=== PATIENT | male | born 1990 | race Caucasian/White ===

== ENCOUNTER 2020-06-06 13:12 | Emergency (ER) | payer OTHER, SELFPAY ==
[2020-06-06 13:25] VITALS: BP 143/93; PULSE 85; RESP 21; TEMP 37.2; O2SAT 99; BMI 37.5
--- NOTE | 2020-06-06 13:48 | HMH.EDUTC ---
[facility] [place] Disposition Clinical Impression: Gastroenteritis Disposition: Home, Self-Care Condition on Discharge: Good Instructions: DI for Viral Gastroenteritis -- Adult Additional Instructions: Return diarrhea panel for testing if possible Prescriptions: Ondansetron [Zofran 4mg ODT] 4 mg PO TIDP PRN 10 Days #30 tab PRN Reason: Nausea Transmission Status: Pending to [id number] Referrals: Julieth Das DO [Primary Care Provider] - Time of Disposition: 13:55 Medical Decision Making - Bi Inquiry Pt receiving controlled substance: No [facility] [place] HPI - General Stated complaint: nausea, diarrhea Time Seen by Provider: 06/06/20 13:48 - History of Present Illness Provider Complaint: Patient has had nausea and diarrhea X 1 week. Vomited one time yesterday. Denies abdominal pain but has had cramping and gurgling. No fever. Had COVID vaccine #2 2 weeks ago and gets tested daily at work. Onset (ago): week(s) (1) Location: abdomen Relieving factors: none Exacerbating factors: none Associated symptoms: nausea/vomiting Treatments prior to arrival: none - Related Data Previous Rx's Medication Instructions Recorded ondansetron HCl 4 mg tablet 4 mg PO TID PRN 5 Days #10 tab 03/26/19 Ondansetron [Zofran 4mg ODT] 4 mg PO TIDP PRN 10 Days #30 tab 06/06/20 Allergies Allergy/AdvReac Type Severity Reaction Status Date / Time ibuprofen [IBUPROFEN] Allergy Unknown Verified 03/26/19 13:[address] [facility] History - Hepatitis A Screen Attestation statement:: This patient has been screened for Hepatitis A risk factors. I have reviewed the patient's past medical history: Yes Medical History: Reports:: Urinary Tract Infection (many years ago. ) Denies:: Diabetes Mellitus Type 2, Seizures Other Medical History: Reports: Other (Circumsized Male) Comment: Pt denies STI or new sexual partners. Other Surgeries: Yes: No Previous Surgery Comment: right ankle surgery cyst removal as a child - Social History Smoking Status: Never smoker Alcohol Intake: current Alcohol Intake Frequency:: holidays/special occasions only Substance Use Type: denies use Occupational Status: employed Household Members: significant other Family Hx:: Non-contributory, Diabetes (Aunt. ) ROS Obtained: Yes All systems reviewed & no additional complaints - Gastrointestinal Gastrointestingal: Reports: loose stools, nausea, vomiting Physical Exam - General General appearance: alert, in no apparent distress - Head Head exam: normocephalic - Eye Eye exam: Present: PERRL - ENT ENT exam: Present: normal oropharynx - Respiratory Respiratory exam: Present: normal lung sounds bilaterally - Cardiovascular Cardiovascular exam: Present: regular rate, normal rhythm - Abdominal Exam Abdominal exam: Present: soft, hyperactive bowel sounds. Absent: tenderness, guarding - Neurological Exam Neurological exam: Present: alert, oriented X3 - Psychiatric Psychiatric exam: Present: normal affect, normal mood - Skin Skin exam: Present: warm, dry, intact
[2020-06-06 13:57] VITALS: BP 143/93; PULSE 85; RESP 21; TEMP 37.2; O2SAT 99
== END 2020-06-06 14:03 | disposition home or self-care (01) ==
PROVIDERS: Emergency Provider Physician Assistant; PCP Family Medicine
DX: K52.9 Noninfective gastroenteritis and colitis, unspecified (principal)
CPT/HCPCS: 99202; G0463

== ENCOUNTER 2024-10-02 12:32 | Emergency (ER) | payer SELFPAY ==
--- OUTSIDE RECORDS SUMMARY | 2024-07-06 06:15 | XMS_ITS ---
Author Organization [facility] Address [address] [place], [place] [id number] Care Team Providers Care Marine Electronics Technician Name Role Phone Livier Gleason Primary Care Provider Lety Lyman Unavailable [phone] Allergies No Known Allergies REASON FOR VISIT ckup & refills Medications Medication SIG (Take, Route, Frequency, Duration) Notes Start Date End Date Status Venlafaxine HCl ER 150 MG 1 capsule with food Orally Once a day for 10 days Active hydrOXYzine HCl 25 MG 1 tab(s) orally at bedtime as needed 10/29/2021 Not-Taking Paxil 30 MG 1 tab(s) orally once a day for 30 day(s) Not-Taking Metoprolol Succinate ER 25 MG 1 tablet Orally Once a day for 30 day(s) 10/01/2022 Not-Taking rOPINIRole HCl 0.25 MG 1 tablet 1 to 3 h ours before bedtime Orally Once a day 07/06/2024 Active Venlafaxine HCl ER 150 MG 1 capsule with food Orally Once a day for 30 day(s) Active Problems Problem Type SNOMED Code ICD Code Onset Dates Problem Status W/U Status Risk Notes Problem [id number] Restless legs (G25.81) Active confirmed Vital Signs Blood pressure systolic 130 mm Hg 07/07/19 25 Blood pressure diastolic 80 mm Hg 025 Heart Rate 90 /min 07/06/2024 Height 72.50 in 07/06/2024 Weight 275.4 lbs 07/06/2024 BMI 36.83 kg/m2 07/06/2024 Encounters Encounter Location Date Provider Diagnosis [facility] [address] [place] [id number] 07/06/2024 Lety Nura Depression with anxi ety F41.8 and Restless legs G25.81 Assessments Encounter Date Diagnosis (ICD Code) Assessment Notes Treatment Notes Treatment Clinical Notes Section Notes 07/06/2024 Depression with anxiety (ICD-10 - F41.8) 07/06/2024 Restless legs (ICD-10 - G25.81) Plan Of Treatment Medication Medication Name Sig Start Date Stop Date Notes rOPINIRole HCl 0.25 MG 1 tablet 1 to 3 h ours before bedtime Orally Once a day 07/06/2024 Venlafaxine HCl ER 150 MG 1 capsule with food Orally Once a day for 30 day(s) Next Appt Details Follow Up: once he gets insu jose for labs, Reason: Progress Notes * JOSE RAFAEL PierreDOB:1990 ( 34 yo M)Acc No.[id number]:07/06/2024 Progress Notes Patient: Pierre SAAVEDRA Provider: YANELIS Casanova :1990 A ge:34 Y S ex:Male Date:07/06/2024 Address:[address] [place] [address], [id number] Pcp:Livier Gleason Subjective: * Chief Complaints: * 1 . Ckup & refills. * HPI: H PI: 34 year old male presents with c/o Patient is here today for?Pt is here today for a check up and refills. He is doing well on the venlafaxine. He is having problems with RLS. He cannot afford labs now but should get insurance soon and can get them done at that time.. * ROS: D ERMATOLOGY: no R diane. n o H roxann. G ASTROENTEROLOGY: no N ausea. n o V omiting. n o D iarrhea.? U ROLOGY: no D ifficulty urinating. n o B lood in urine. * Medical History: T etanus vaccination 2011, Pfizer covid vaccine x2. * Surgical History: g rowth on right ankle as a child , cyst removed off of R lower eye lid . * Family History: F ather: alive. M other: alive. 1 brother(s) , 3 sister(s) . . * Social History: C URRENT TOBACCO USE S moking Status: Patient does NOT smoke. C affeine: yes, frequency:pop Qd. Home smoke detector use: yes. Marital Status: Single. Past smoking status: no. Alcohol: No. Sexually active: yes. * Medications: T aking Venlafaxine HCl ER 150 MG Capsule Extended Release 24 Hour 1 capsule with food Orally Once a day , Not-Taking Paxil 30 MG Tablet 1 tab(s) orally once a day , Not-Taking hydrOXYzine HCl 25 MG Tablet 1 tab(s) orally at bedtime as needed , Not-Taking Metoprolol Succinate ER 25 MG Tablet Extended Release 24 Hour 1 tablet Orally Once a day , Medication List reviewed and reconciled with the patient * Allergies: N .K.D.A. Objective: * Vitals: W t: 275.4, Temp: 99.0, BP: 130/80, HR: 90, O2 Sat: 98% on RA, Nurse: daniel, Ht: 72.50, BMI:36.83. * Examination: G eneral Examination: General Appearance: N AD. Chest: n ormal shape and expansion. Heart: R SR. Lungs: c lear to auscultation. Peripheral pulses: normal (2+) bilaterally. Extremities: no leg edema. P sychology: Grooming : a dequate. Eye contact : n ormal. Mood : p leasant. Assessment: * Assessment: 1. D epression with anxiety - F41.8 (Primary) 2 . R estless legs - G25.81? Plan: * Treatment: 2. R estless legs Start rOPINIRole HCl Tablet, 0.25 MG, 1 tablet 1 to 3 hours before bedtime, Orally, Once a day, 30, Refills 0. * Procedure Codes: 9 4760 PULSE OX * Follow Up: o nce he gets insurance for labs * Billing Information: * Visit Code: 36356 Office Visit, Est Pt., Level 2. * Procedure Codes: 26939 PULSE OX. * Electronic signature of YANELIS Keen on 10/02/2024 at 12:59 PM EDT Sign off status: Pending * Provider: YANELIS Casanova Date: 0 07/06/2024 Generated for Savannah rivas/Dilshad/Courtitting on: 0 10/02/2024 12:59 PM EDT History and Physical Notes * HPI (History of Present Illness) Category Sub-Category Detail Notes Category Not es HPI Patient is here today for Pt is here today for a check up and refills. He is doing well on the venlafaxine. He is having problems with RLS. He cannot afford labs now but should get insurance soon and can get them done at that time. Examination Category Sub-Category Detail Notes Category Not es General Examination Heart: RSR Lungs: clear to auscultatio n Extremities: no leg edema General Appearance: NAD Peripheral pulses: normal (2+) bilatera lly Chest: normal shape and exp ansion Psychology Grooming : adequate Eye contact : normal Mood : pleasant
--- OUTSIDE RECORDS SUMMARY | 2024-07-31 11:15 | XMS_ITS ---
Author Organization [facility] Address [address] [id number] Care Team Providers Care Apprentice Cosmetologist Name Role Phone Livier Gleason Primary Care Provider [phone] Oren Varner [phone] Allergies No Known Allergies REASON FOR VISIT diarrhea and puking in mornings, worried about gallbladder Medications Medication SIG (Take, Route, Frequency, Duration) Notes Start Date End Date Status Metoprolol Succinate ER 25 MG 1 tablet Orally Once a day for 30 day(s) 10/01/2022 Not-Taking hydrOXYzine HCl 25 MG 1 tab(s) orally at bedtime as needed 10/29/2021 Not-Taking Ondansetron HCl 4 MG 1 tablet Orally thr ee times a day as needed 07/31/2024 Active Paxil 30 MG 1 tab(s) orally once a day for 30 day(s) Not-Taking rOPINIRole HCl 0.25 MG 1 tablet 1 to 3 h ours before bedtime Orally Once a day 07/06/2024 Active Venlafaxine HCl ER 150 MG 1 capsule with food Orally Once a day for 30 day(s) Active Venlafaxine HCl ER 150 MG 1 capsule with food Orally Once a day for 10 days Active Vital Signs Blood pressure systolic 130 mm Hg 08/01/19 25 Blood pressure diastolic 88 mm Hg 025 Heart Rate 98 /min 07/31/2024 Height 72.50 in 07/31/2024 Weight 274.2 lbs 07/31/2024 BMI 36.67 kg/m2 07/31/2024 Encounters Encounter Location Date Provider Diagnosis [facility] [address] [place] [id number] 07/31/2024 Oren Varner RUQ abdominal pain R10.11 and Nausea R11.0 Assessments Encounter Date Diagnosis (ICD Code) Assessment Notes Treatment Notes Treatment Clinical Notes Section Notes 07/31/2024 RUQ abdominal pain (ICD-10 - R10.11) 07/31/2024 Nausea (ICD-10 - R11.0) Plan Of Treatment Medication Medication Name Sig Start Date Stop Date Notes Ondansetron HCl 4 MG 1 tablet Orally thr ee times a day as needed 07/31/2024 Pending Test Test Name Order Date Ultrasound : Right Upper Quadrant 2024 HIDA SCAN with CCK 07/31/2024 Next Appt Details Follow Up: after tests, Reas on: Progress Notes * Pierre MANTILLADOB:1990 ( 34 yo M)Acc No.[id number]:07/31/2024 Progress Notes Patient: Pierre SAAVEDRA Provider: Oren Varner M.D. :1990 A ge:34 Y S ex:Male Date:07/31/2024 Address:[address] [place] [address], [id number] Pcp:Livier Gleason Subjective: * Chief Complaints: * 1 . Diarrhea and puking in mornings, worried about gallbladder. * HPI: G astroenterology: He presents with a 2-day history of right upper quadrant pain associated with nausea and loose stools. This typically occurs in the mornings. Does not seem to be related to any particular food. Denies fever. No blood in stool. He has a history of gallbladder sludge noted on ultrasound in 2020. He did not have follow-up testing. * ROS: D ERMATOLOGY: no R diane. n o H roxann. G ASTROENTEROLOGY: no N ausea. n o V omiting. n o D iarrhea.? U ROLOGY: no D ifficulty urinating. n o B lood in urine. * Medical History: T etanus vaccination 2012, Pfizer covid vaccine x2. * Surgical History: g amanda on right ankle as a child , [...] with food Orally Once a day , Taking Venlafaxine HCl ER 150 MG Capsule Extended Release 24 Hour 1 capsule with food Orally Once a day , Taking rOPINIRole HCl 0.25 MG Tablet 1 tablet 1 to 3 hours before bedtime Orally Once a day , Not-Taking Paxil [...] N .K.D.A. Objective: * Vitals: W t: 274.2, Temp: 98.8, BP: 130/88, HR: 98, Nurse: daniel, Ht: 72.50, BMI:36.67. * Examination: G eneral Examination: General Appearance: N AD. Heart: R SR. Lungs: c lear to auscultation. Abdomen: S oft and nondistended. Bowel sounds are present but diminished. There is mild right upper quadrant tenderness to palpation. No rebound or guarding.. Assessment: * Assessment: 1. R UQ abdominal pain - R10.11 (Primary) 2 . N ausea - R11.0 ? Plan: * Treatment: ?Imaging: HIDA SCAN with CCK* Neeta Quiros 08/01/2024 10:0 3:44 AM > patient is SP; sent to [facility] for GFETaNeeta tony 08/08/2024 11:16:00 AM > Charley from [facility] has tried to call the patient and left messages twice to give GFE 2.?Nausea? Start Ondansetron HCl Tablet, 4 MG, 1 tablet, Orally, three times a day as needed, 20.?? * Follow Up: a fter tests * Billing Information: * Visit Code: 65605 Office Visit, Est Pt., Level 2. * Procedure Codes: * Electronic signature of Oren Varner MD on 10/02/2024 at 12:59 PM EDT Sign off status: Pending * Provider: Oren Varner M.D. Date: 0 07/31/2024 Generated for Savannah rivas/Dilshad/Chloéransmitting on: 0 10/02/2024 12:59 PM EDT History and Physical Notes * Examination Category Sub-Category Detail Notes Category Not es General Examination Heart: RSR Lungs: clear to auscultatio n Abdomen: Soft and nondistende d. Bowel sounds are present but diminished. There is mild right upper quadrant tenderness to palpation. No rebound or guarding. General Appearance: NAD
--- OUTSIDE RECORDS SUMMARY | 2024-10-01 10:30 | XMS_ITS ---
Author Organization [facility] Address [address] [facility] [address] [place], [place] [address] Care Team Providers Care Oral And Maxillofacial Pathologist Name Role Phone Livier Gleason Primary Care Provider [phone] Yazan Townsend [phone] Allergies No Known Allergies REASON FOR VISIT Fever, abdomen pain and diarrhea Encounters Encounter Location Date Provider Diagnosis [facility] [address] [place] [id number] 10/01/2024 Yazan Townsend Plan Of Treatment Pending Test Test Name Order Date CBC Fingerstick (in house) 10/01/2024 Progress Notes * Pierre MANTILLADOB:1990 ( 34 yo M)Acc No.[id number]:10/01/2024 Progress Notes Patient: Pierre SAAVEDRA Provider: Najma Townsend M.D. :1990 A ge:34 Y S ex:Male Date:10/01/2024 Address:[address] , [place], [place] Pcp:Livier Gleason Subjective: * Chief Complaints: * 1 . Fever, abdomen pain and diarrhea. * ROS: C ARDIOLOGY: no D izziness. n o C hest pain. D ERMATOLOGY: no R diane. n o H roxann. U ROLOGY: no D ifficulty urinating. n o B lood in urine. * Medical History: M edical History Verified. * Surgical History: g rowth on right ankle as a child , cyst removed off of R lower eye lid 01/2013. * Hospitalization/Major Diagno stic Procedure: D enies Past Hospitalization. * Family History: F ather: alive. M other: alive. 1 brother(s) , 3 sister(s) . . * Social History: C URRENT TOBACCO USE S moking Status: Patient does NOT smoke. C affeine: yes, frequency:pop Qd. Home smoke detector use: yes. Marital Status: Single. Past smoking status: no. Alcohol: No. Sexually active: yes. * Allergies: N .K.D.A. Objective: * Vitals: Assessment: Plan: * Treatment: * Labs: * L ab: CBC Fingerstick (in house) * Procedure Codes: 3 6416 CAPILLARY BLOOD DRAW, 69942 CBC WITH AUTO DIFF * Billing Information: * Visit Code: * Procedure Codes: 29251 CAPILLARY BLOOD DRAW. 61426 CBC WITH AUTO DIFF. * Electronic signature of Kenyetta Townsend MD on 10/02/2024 at 12:59 PM EDT Sign off status: Pending * Provider: Najma Townsend M.D. Date: 0 10/01/2024 Generated for Savannah rivas/Dilshad/Courtitting on: 0 10/02/2024 12:59 PM EDT
[2024-10-02 12:40] VITALS: BP 149/101; PULSE 88; RESP 18; TEMP 37.4; O2SAT 98; BMI 36.3
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
--- OUTSIDE RECORDS SUMMARY | 2024-10-02 12:59 | XMS_ITS | Patient Health Record ---
Author Organization [facility] Address [address] [facility] [address] [id number] Care Team Providers Care Major Account Representative Name Role Phone Livier Gleason Primary Care Provider Oren Varner Unavailable [phone] Yazan Townsend Unavailable [phone] Lety Lyman Unavailable [phone] Allergies No Known Allergies Results Component Value Reference Range Notes CBC Fingerstick (in house) Reviewed date:01/09/2024 09:32:00 AM Interpretation: Performing Lab: Notes/Report: wbc 11.4 3.5 - 10 lym 14.9 15 - 50 mid 3.9 2 - 15 gran 81.2 35 - 80 rbc 5.13 3.5 - 5.5 hgb 14.7 11.5 - 16.5 hct 43.4 35 - 55 mcv 84.5 75 - 100 mch 28.7 25 - 35 mchc 34.0 31 - 38 plat 193 100 - 400 Medications Medication SIG (Take, Route, Frequency, Duration) Notes Start Date End Date Status Venlafaxine HCl ER 150 MG 1 capsule with food Orally Once a day for 30 day(s) Active Metoprolol Succinate ER 25 MG 1 tablet [...] Once a day for 10 days Active Immunizations Vaccine Route Administration Date Status Comme nts xFlu shot-36 months and older IM Intramuscular 12/20/2008 Administered Tetanus Tdap-Adacel (over 7yrs) Unknown 06/23/2011 Administered DT, 7 YEARS OR OLDER Unknown 12/11/2003 Administered COVID 19 Pfizer Unknown 05/03/2020 Administered COVID 19 Pfizer Unknown 05/23/2020 Administered Problems Problem Type SNOMED Code ICD Code Onset Dates Problem Status W/U Status Risk Notes Problem 551883020 Depression with anxiety (F41.8) Active confirmed Problem 41136599 Restless legs (G25.81) Active confirme d Problem 659362617 Acute upper respiratory infection, unspecified (J06.9) Active confirmed Problem 342211627 Gastroesophageal reflux disease without esophagitis (K21.9) Active confirmed Problem 378048837 Psychophysiologi bud insomnia (F51.04) Active confirmed Problem 11862818 Acute allergic conjunctivitis, bilateral (H10.13) Active confirmed Problem 94635770 Hypertension, unspecified type (I10) Active confirmed Vital Signs Heart Rate 98 /min 07/31/2024 Blood pressure diastolic 88 mm Hg 07/31/2024 Height 72.50 in 07/31/2024 Blood pressure systolic 130 mm Hg 07/31/2024 Weight 274.2 lbs 07/31/2024 BMI 36.67 kg/m2 07/31/2024 Encounters Encounter Location Date Provider Diagnosis [facility] [address] [facility] 36 [facility] [address] [place] [id number] 01/09/2024 R Matt Varner Acute bronchitis J20 .9 [facility] [facility] [address] [place] [id number] 07/06/2024 Lety Crowdy Depression with anxiety F41.8 and Restless legs G25.81 [facility] [address] [facility] [address] [place] [id number] 07/31/2024 R Matt Varner RUQ abdominal pain R10.11 and Nausea [facility]11.[facility] [address] [facility] [address] [place] [id number] 07/02/2024 Livier Gleason Assessments Encounter Date Diagnosis (ICD Code) Assessment Notes Treatment Notes Treatment Clinical Notes Section Notes 01/09/2024 Acute bronchitis (ICD-10 - J20.9) 07/06/2024 Depression with anxiety (ICD-10 - F41.8) 07/06/2024 Restless legs (ICD-10 - G25.81) 07/31/2024 RUQ abdominal pain (ICD-10 - R10.11) 07/31/2024 Nausea (ICD-10 - R11.0) Plan Of Treatment Pending Test Test Name Order Date Ultrasound : Right Upper Quadrant 2024 HIDA SCAN with CCK 11/24/2020 HIDA SCAN with CCK 07/31/2024 Medications Administered Medication Instructions Date of Administration Dosage Notes Bicillin LA 1,200,000 03/12/2013 2 mL rocephin one gram IM 01/24/2009 Medical (General) History Surgical History Surgery Date(Month/Year) growth on right ankle as a child cyst removed off of R lower eye lid 01/17
[2024-10-02 13:00] VITALS: BP 125/80; PULSE 79; O2SAT 98
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
[2024-10-02] MEDS: ACETAMINOPHEN 500MG TAB 1000 MG PO (13:16)
[2024-10-02] MEDS: MECLIZINE 25MG TABLET 25 MG PO (13:16)
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
[2024-10-02 15:18] VITALS: BP 139/91; PULSE 70; RESP 18; TEMP 37; O2SAT 99
== END 2024-10-02 15:18 | disposition home or self-care (01) ==
PROVIDERS: Emergency Provider Emergency Medicine; PCP Physician Assistant
DX: S50.12XA Contusion of left forearm, initial encounter (principal); S60.222A Contusion of left hand, initial encounter; V49.9XXA Car occupant (driver) (passenger) injured in unspecified traffic accident, initial encounter; Y92.410 Unspecified street and highway as the place of occurrence of the external cause
CPT/HCPCS: 73090; 73130; 99283